=== PATIENT | female | born 1950 | race Caucasian/White ===

== ENCOUNTER 2022-06-22 17:53 | Outpatient (CLI) | payer MEDICARE, BC, SELFPAY | END 2022-06-22 17:54 | disposition home or self-care (01) | LOC: AMB 07-07 16:25 | PROVIDERS: PCP Family Medicine; Visit Provider Emergency Medicine Emergency Medical Services | DX: S81.811A Laceration without foreign body, right lower leg, initial encounter (principal); F10.129 Alcohol abuse with intoxication, unspecified | CPT/HCPCS: A0425; A0427 ==

== ENCOUNTER 2022-06-22 18:31 | Emergency (ER) | payer MEDICARE, BC, SELFPAY ==
[2022-06-22 18:35] VITALS: BP 141/105; PULSE 76; RESP 18; TEMP 36.2; BMI 23.4
--- NOTE | 2022-06-22 19:42 | ED.WOUNDLAC ---
HPI - Wound/Laceration General Chief Complaint: Laceration/Wound Stated Complaint: Fall, Laceration Time Seen by Provider: 06/22/22 18:34 History of Present Illness HPI narrative: This 71-year-old female comes in with a injury to her right lower extremity. She was at home and caught her leg and somehow tripped and sustained a large laceration to the right lower extremity. She did not have any other injury. She did not hit her head or have loss of consciousness. She states that her tetanus status is up-to-date. Related Data Home Medications Medication Instructions Recorded Confirmed No Known Home Medications 06/22/22 06/22/22 Allergies Allergy/AdvReac Type Severity Reaction Status Date / Time No Known Drug Allergies Allergy Verified 06/22/22 18:40 Review of Systems Status of ROS: Reports: 10 or more systems reviewed and unremarkable except as noted in History and below Narrative: Constitutional: No fevers, no weight gain or loss. Eyes: No discharge. No vision changes. HENT: No congestion, no sore throat, no ear pain. Cardiovascular: No chest pain, no palpitations. Respiratory: No shortness of breath, no wheezes, no cough. Gastrointestinal: No abdominal pain, no vomiting, no diarrhea. Genitourinary: No dysuria, no hematuria. Musculoskeletal: Normal range of motion. Skin: No rashes, no pruritis. Large laceration on the right lower extremity. Neurological: No dizziness, weakness, sensory change, speech change. Endo/Heme/Allergies: No bruising or bleeding. No polydipsia. Pysch: no suicidality, no anxiety, no insomnia. All other systems reviewed and are negative. PFSH PFS Social History Smoking Status: Never smoker Second hand tobacco smoke exposure: No How often do you have a drink containing alcohol: never How often do you have six or more drinks on one occasion: Never AUDIT-C Alcohol total score: 0 Non-prescribed substance use: denies use service: No Exam Narrative: Exam Narrative: Constitutional: Well-developed, well-nourished, no acute distress. HEENT: Normocephalic, atraumatic. Neck: Normal range of motion. Nontender. Supple. Heart: Intact distal pulses. Lungs: No chest discomfort. No wheezes, rhonchi, or rales. Abdomen: Nontender. Back: Normal range of motion. Extremities: Normal range of motion. The anterior aspect of the right lower extremity has a laceration that is approximately 18 cm long and gaping open at 3-5 cm with. She has normal range of motion and sensation of her right lower extremity. Skin: Intact. No rash. Warm. No erythema or pallor. Neurologic: No altered sensation. No weakness. Alert and oriented. Psychiatric: No suicidality. No anxiety or depression. No insomnia. Nursing notes and vitals signs are reviewed. Const: Vital Signs, click to edit/add: Vital Signs - 24 hr 06/22/22 18:35 Temperature 97.2 F L Pulse Rate [Right Pulse Oximeter] 76 Respiratory Rate 18 Blood Pressure [Ri ght Upper Arm] 141/105 H Oxygen Delivery Me thod Room Air Course Vital Signs Vital signs: Initial Vital Signs Temperature 97.2 F L 06/22/22 18:35 Temperature Source Temporal Artery Scan 06/22/22 18:35 Pulse Rate 76 06/22/22 18:35 Respiratory Rate 18 06/22/22 18:35 Blood Pressure 141/105 H 06/22/22 18:35 Blood Pressure Mean 117 06/22/22 18:35 Blood Pressure Position Sitting 06/22/22 18:35 Oxygen Delivery Method 06/22/22 18:35 Vital Signs Temperature 97.2 F L 06/22/22 18:35 Pulse Rate 76 06/22/22 18:35 Respiratory Rate 18 06/22/22 18:35 Blood Pressure 141/105 H 06/22/22 18:35 Oxygen Delivery Method 06/22/22 18:35 Temperature 97.2 F L 06/22/22 18:35 Pulse Rate 76 06/22/22 18:35 Respiratory Rate 18 06/22/22 18:35 Blood Pressure 141/105 H 06/22/22 18:35 Oxygen Delivery Method 06/22/22 18:35 MDM - Wound/Laceration MDM Narrative Medical decision making narrative: This patient comes in with a large laceration to the right lower extremity. After anesthesia with 1% lidocaine with epinephrine. The wound was cleansed thoroughly with normal saline. I then approximated the wound partially with subcuticular sutures. Three sutures were placed in interrupted fashion using 4.0 Vicryl suture. Then I used 4.0 Ethilon to approximate the wound edges. Fifteen sutures were placed in interrupted fashion. Instructions were given regarding wound care. Seeing how large this wound is I did decide to prophylactically treat with a few days of Keflex. Discharge Plan Discharge Clinical Impression: Laceration Patient Disposition: Home, Self-Care Condition: Improved Additional Instructions: Keep wound clean and dry. Take medication as prescribed. Follow up with clinic or urgent care in 7-10 days for suture removal. Prescriptions: No Action No Known Home Medications Follow Up/Referrals: Rich Bynum MD [Primary Care Provider] - Stand Alone Forms: [employer] Info Instructions
== END 2022-06-22 20:11 | disposition home or self-care (01) ==
PROVIDERS: Emergency Provider Emergency Medicine Emergency Medical Services; PCP Family Medicine
DX: S81.811A Laceration without foreign body, right lower leg, initial encounter (principal); W01.0XXA Fall on same level from slipping, tripping and stumbling without subsequent striking against object, initial encounter; Y93.9 Activity, unspecified; Y92.9 Unspecified place or not applicable; Y99.9 Unspecified external cause status
CPT/HCPCS: 12035; 99282; 99284

== ENCOUNTER 2022-07-24 02:44 | Emergency (ER) | payer MEDICARE, BC, SELFPAY ==
[2022-07-24 02:56] VITALS: BP 157/87; PULSE 78; RESP 18; TEMP 36.7; O2SAT 99; BMI 23.4
[2022-07-24] MEDS: LIDOCAINE 1 % PF 30 ML INJECTION (03:10)
--- NOTE | 2022-07-24 03:13 | ED.GENADULT ---
HPI - General Adult General Chief complaint: Laceration/Wound Stated complaint: fell down hit a mirror, needs stitches Time Seen by Provider: 07/24/22 02:46 Source: patient Mode of arrival: ambulatory Limitations: no limitations History of Present Illness HPI narrative: 71-year-old female who around 2:00 a.m. in the morning got up to eat some candy, this was approximately 1 hour ago. She took her walker, however she lost her balance and tipped over falling elbow 1st into a mirror that was on the ground. The mirror broke and lacerated her elbow. She denies hitting her head. She denies any other injury. She is not on any blood thinners. Related Data Home Medications Medication Instructions Recorded Confirmed multivitamin 1 tab PO QAM 07/07/22 07/07/22 naproxen sodium 220 mg tablet 440 mg PO DAILY 07/07/22 07/07/22 Previous Rx's Medication Instructions Recorded cephalexin 500 mg capsule 500 mg PO TID 7 days #21 caps 07/24/22 Allergies Allergy/AdvReac Type Severity Reaction Status Date / Time No Known Drug Allergies Allergy Verified 07/24/22 02:58 Review of Systems Status of ROS: Reports: 6 or more systems reviewed and unremarkable except as noted in History and below [facility] Medical History History of fracture of right hip Surgical History History of section (06/05/13) History of colonoscopy Social History Narrative: Alcohol abuse Smoking Status: Current every day smoker Second hand tobacco smoke exposure: No How often do you have a drink containing alcohol: never How often do you have six or more drinks on one occasion: Never AUDIT-C Alcohol total score: 0 Non-prescribed substance use: denies use service: No Exam Narrative: Exam Narrative: Frail, elderly patient in no acute distress. Alert and oriented. Answers questions appropriately. Mood and affect are appropriate. Thoughts are goal oriented and rational. No tangential or magical thinking noted. Patient speaks in full sentences without needing to catch her breath. Speech is not slurred or pressured. HEENT: Normocephalic atraumatic. Pupils are equally round reactive to light. Extraocular muscles are intact. Conjunctivae are moist without any icterus noted. Moist mucous membranes. Neck is soft without any lymphadenopathy or thyromegaly. She has no tenderness to palpation at the cervical spine. She has full range of motion with flexion, extension, side way bending and rotation. Cardiovascular: Heart is regular rate and rhythm. Lungs: Clear to auscultation bilaterally. Patient takes deep breaths without any discomfort. She has no tenderness to palpation of the anterior lateral or posterior chest wall. Abdomen: Soft and nontender nondistended with normal bowel sounds. Extremities: Patient has a large laceration over the lateral elbow on the right side. Laceration is approximately 2 in long. Laceration extends through the dermis which is expectedly thin, and into the subcutaneous tissue which is also thin. There is no visible bone. She has surrounding ecchymosis already forming. Const: Vital Signs, click to edit/add: Vital Signs - 24 hr 07/24/22 02:56 Temperature 98.0 F Pulse Rate [Right Pulse Oximeter] 78 Respiratory Rate 18 Blood Pressure [Le ft Upper Arm] 157/87 H Pulse Oximetry 99 Oxygen Delivery Me thod Room Air Course Course Hospital Course: Wound was anesthetized with lidocaine. Wound was irrigated with saline and wound cleanser and was explored. There are no fragments of glass or mere visible. Again no bones or visible. I did place 1 subcutaneous suture with 4-0 Vicryl. A running suture was placed with 3-0 Ethilon. Vital Signs Vital signs: Initial Vital Signs Temperature 98.0 F 07/24/22 02:56 Temperature Source Temporal Artery Scan 07/24/22 02:56 Pulse Rate 78 07/24/22 02:56 Respiratory Rate 18 07/24/22 02:56 Blood Pressure 157/87 H 07/24/22 02:56 Blood Pressure Mean 110 07/24/22 02:56 Blood Pressure Position Sitting 07/24/22 02:56 Pulse Oximetry 99 07/24/22 02:56 Oxygen Delivery Method 07/24/22 02:56 Vital Signs Temperature 98.0 F 07/24/22 02:56 Pulse Rate 78 07/24/22 02:56 Respiratory Rate 18 07/24/22 02:56 Blood Pressure 157/87 H 07/24/22 02:56 Pulse Oximetry 99 07/24/22 02:56 Oxygen Delivery Method 07/24/22 02:56 Temperature 98.0 F 07/24/22 02:56 Pulse Rate 78 07/24/22 02:56 Respiratory Rate 18 07/24/22 02:56 Blood Pressure 157/87 H 07/24/22 02:56 Pulse Oximetry 99 07/24/22 02:56 Oxygen Delivery Method 07/24/22 02:56 Medical Decision Making MDM Narrative Medical decision making narrative: Laceration. Treated per above. Patient will be placed on Keflex given the length and depth of her laceration. We discussed wound hygiene, signs and symptoms of infection and reasons to return to clinic. I discussed this with both the patient and her . We discussed suture removal in 7-10 days. Discharge Plan Discharge Clinical Impression: Laceration Patient Disposition: Home, Self-Care Condition: Improved Additional Instructions: Keep arm clean and dry. Okay to shower like you normally would. Keep the elbow wrapped-this prevents movement and bending at the elbow, which will help keep your sutures in place. Your sutures should be removed in 7-10 [id number] with your primary care provider to have this done. Okay to ice the elbow today and tomorrow-do not apply ice directly to skin, ice for 20 minutes at a time. operations support representative your medications and start them in the morning. Prescriptions: New cephalexin 500 mg capsule 500 mg PO TID 7 Days Qty: 21 0RF No Action naproxen sodium 220 mg tablet 440 mg PO DAILY multivitamin Tablet 1 tab PO QAM Follow Up/Referrals: Rich Bynum MD [Primary Care Provider] - Stand Alone Forms: [email or web address] Info Instructions
[2022-07-24 03:22] VITALS: BP 145/85; PULSE 78; RESP 18; TEMP 36.7; O2SAT 99
[2022-07-24 03:25] VITALS: BP 145/85; PULSE 78; RESP 18; TEMP 36.7
== END 2022-07-24 03:26 | disposition home or self-care (01) ==
PROVIDERS: Emergency Provider Family Medicine; PCP Family Medicine
DX: S51.011A Laceration without foreign body of right elbow, initial encounter (principal); W01.110A Fall on same level from slipping, tripping and stumbling with subsequent striking against sharp glass, initial encounter
CPT/HCPCS: 12001; 99283; 99284; J2001

== ENCOUNTER 2022-08-03 14:30 | Outpatient (CLI) | payer MEDICARE, BC, SELFPAY ==
[2022-08-03 17:34] LABS: Chloride* 107 mmol/L (96-114); Potassium* 4.2 mmol/L (3.6-5.1); Sodium* 137 mmol/L (135-149)
[2022-08-03 17:36] LABS: Cholesterol* 168 mg/dL (90-199); Estimated Glomerular Filt Rate 59 ml/min
[2022-08-03 17:37] LABS: Blood Urea Nitrogen* 12 mg/dL (7-30); Calcium* 9.4 mg/dL (8.4-10.6); Carbon Dioxide* 22 mmol/L (20-32); Glucose* 98 mg/dL (60-115); HDL Cholesterol* 90 mg/dL (>=50); LDL Cholesterol Calculated 64 mg/dL (<100); Triglycerides* 69 mg/dL (40-149)
[2022-08-03 18:05] LABS: TSH With Reflex to FT4* 0.271 uIU/mL (0.270-4.200)
[2022-08-03 18:24] LABS: Vitamin B12* 797 pg/mL (243-894)
== END 2022-08-03 14:31 | disposition home or self-care (01) ==
PROVIDERS: PCP Family Medicine; Visit Provider Family Medicine
DX: R53.1 Weakness (principal); I10 Essential (primary) hypertension; Z13.29 Encounter for screening for other suspected endocrine disorder; Z13.1 Encounter for screening for diabetes mellitus; Z13.6 Encounter for screening for cardiovascular disorders
CPT/HCPCS: 80048; 80061; 82607; 84443

== ENCOUNTER 2022-10-18 12:28 | Outpatient (CLI) | payer MEDICARE, BC, SELFPAY | END 2022-10-18 12:29 | disposition home or self-care (01) | LOC: WOUND 12:28 | PROVIDERS: PCP Family Medicine; Visit Provider Nurse Practitioner Family | DX: I87.311 Chronic venous hypertension (idiopathic) with ulcer of right lower extremity (principal); L97.812 Non-pressure chronic ulcer of other part of right lower leg with fat layer exposed; I89.0 Lymphedema, not elsewhere classified; Z72.0 Tobacco use | CPT/HCPCS: 11042; 11045; 87070; 99213 ==

== ENCOUNTER 2022-10-25 14:48 | Outpatient (CLI) | payer MEDICARE, BC, SELFPAY | END 2022-10-25 14:49 | disposition home or self-care (01) | LOC: WOUND 14:48 | PROVIDERS: PCP Family Medicine; Visit Provider Nurse Practitioner Family | DX: I87.311 Chronic venous hypertension (idiopathic) with ulcer of right lower extremity (principal); L97.812 Non-pressure chronic ulcer of other part of right lower leg with fat layer exposed; I89.0 Lymphedema, not elsewhere classified; Z72.0 Tobacco use | CPT/HCPCS: 11042; 11045 ==

== ENCOUNTER 2022-11-01 11:19 | Outpatient (CLI) | payer MEDICARE, BC, SELFPAY | END 2022-11-01 11:20 | disposition home or self-care (01) | LOC: WOUND 11:19 | PROVIDERS: PCP Family Medicine; Visit Provider Nurse Practitioner Family | DX: I87.311 Chronic venous hypertension (idiopathic) with ulcer of right lower extremity (principal); L97.812 Non-pressure chronic ulcer of other part of right lower leg with fat layer exposed; I89.0 Lymphedema, not elsewhere classified; Z72.0 Tobacco use | CPT/HCPCS: 11042 ==

== ENCOUNTER 2022-11-08 13:20 | Outpatient (CLI) | payer MEDICARE, BC, SELFPAY | END 2022-11-08 13:21 | disposition home or self-care (01) | LOC: WOUND 13:20 | PROVIDERS: PCP Family Medicine; Visit Provider Nurse Practitioner Family | DX: I87.311 Chronic venous hypertension (idiopathic) with ulcer of right lower extremity (principal); L97.812 Non-pressure chronic ulcer of other part of right lower leg with fat layer exposed | CPT/HCPCS: 11042; 11045 ==

== ENCOUNTER 2022-11-15 10:53 | Outpatient (CLI) | payer MEDICARE, BC, SELFPAY | END 2022-11-15 10:54 | disposition home or self-care (01) | LOC: WOUND 10:54 | PROVIDERS: PCP Family Medicine; Visit Provider Nurse Practitioner Family | DX: I87.311 Chronic venous hypertension (idiopathic) with ulcer of right lower extremity (principal); L97.812 Non-pressure chronic ulcer of other part of right lower leg with fat layer exposed; I89.0 Lymphedema, not elsewhere classified; Z72.0 Tobacco use | CPT/HCPCS: 11042; 11045 ==

== ENCOUNTER 2022-11-22 10:41 | Outpatient (CLI) | payer MEDICARE, BC, SELFPAY | END 2022-11-22 10:42 | disposition home or self-care (01) | LOC: WOUND 10:41 | PROVIDERS: PCP Family Medicine; Visit Provider Nurse Practitioner Family | DX: I87.311 Chronic venous hypertension (idiopathic) with ulcer of right lower extremity (principal); L97.812 Non-pressure chronic ulcer of other part of right lower leg with fat layer exposed; I89.0 Lymphedema, not elsewhere classified; Z72.0 Tobacco use | CPT/HCPCS: 11043; 11046 ==

== ENCOUNTER 2022-11-29 10:44 | Outpatient (CLI) | payer MEDICARE, BC, SELFPAY | END 2022-11-29 10:45 | disposition home or self-care (01) | LOC: WOUND 10:44 | PROVIDERS: PCP Family Medicine; Visit Provider Nurse Practitioner Family | DX: I87.311 Chronic venous hypertension (idiopathic) with ulcer of right lower extremity (principal); L97.812 Non-pressure chronic ulcer of other part of right lower leg with fat layer exposed; I89.0 Lymphedema, not elsewhere classified; Z72.0 Tobacco use | CPT/HCPCS: 11042 ==

== ENCOUNTER 2022-12-01 12:49 | Outpatient (CLI) | payer MEDICARE, BC, SELFPAY ==
--- NOTE | 2022-12-01 13:00 | CRLHL7_ITS ---
For Patients: As a result of the Century Cures Act, medical imaging exams and procedure reports are released immediately into your electronic medical record. You may view this report before your referring provider. If you have questions, please contact your health care provider. Indication: NON-HEALING LE WOUND, Comparison: None Technique: Routine duplex arterial examination of bilateral lower extremities including 2D and spectral analysis, and color Doppler imaging was performed. Findings: In the right lower extremity there are multiphasic waveforms in the common femoral artery, profunda femoral artery, superficial femoral artery, and popliteal artery. Similarly, at the ankle, there are multiphasic waveforms in the posterior tibial artery, and dorsalis pedis arteries. In the left lower extremity there are multiphasic waveforms within the common femoral artery, profunda femoral artery, superficial femoral artery, and popliteal artery. Similarly, at the ankle, there are multiphasic waveforms in the posterior tibial artery, and dorsalis pedis arteries. Impression: Multiphasic waveforms of bilateral lower extremities. No elevated velocities to suggest focal stenosis. Dictated by Kevin Osborn MD @ 12/02/2022 10:51:04 AM (Electronically Signed)
== END 2022-12-01 12:50 | disposition home or self-care (01) ==
LOC: US 12:50
PROVIDERS: PCP Family Medicine; Visit Provider Nurse Practitioner Family
DX: L97.212 Non-pressure chronic ulcer of right calf with fat layer exposed (principal)
CPT/HCPCS: 93926

== ENCOUNTER 2023-01-03 10:49 | Outpatient (CLI) | payer MEDICARE, BC, SELFPAY | END 2023-01-03 10:50 | disposition home or self-care (01) | LOC: WOUND 10:49 | PROVIDERS: PCP Family Medicine; Visit Provider Nurse Practitioner Family | DX: I87.311 Chronic venous hypertension (idiopathic) with ulcer of right lower extremity (principal); L97.812 Non-pressure chronic ulcer of other part of right lower leg with fat layer exposed; I89.0 Lymphedema, not elsewhere classified; Z72.0 Tobacco use | CPT/HCPCS: 11042 ==

== ENCOUNTER 2023-01-10 11:18 | Outpatient (CLI) | payer MEDICARE, BC, SELFPAY | END 2023-01-10 11:19 | disposition home or self-care (01) | LOC: WOUND 11:19 | PROVIDERS: PCP Family Medicine; Visit Provider Nurse Practitioner Family | DX: I87.311 Chronic venous hypertension (idiopathic) with ulcer of right lower extremity (principal); L97.812 Non-pressure chronic ulcer of other part of right lower leg with fat layer exposed; I89.0 Lymphedema, not elsewhere classified | CPT/HCPCS: 11042 ==

== ENCOUNTER 2023-01-24 11:19 | Outpatient (CLI) | payer MEDICARE, BC, SELFPAY | END 2023-01-24 11:20 | disposition home or self-care (01) | LOC: WOUND 11:20 | PROVIDERS: PCP Family Medicine; Visit Provider Family Medicine | DX: I87.311 Chronic venous hypertension (idiopathic) with ulcer of right lower extremity (principal); I89.0 Lymphedema, not elsewhere classified; L97.812 Non-pressure chronic ulcer of other part of right lower leg with fat layer exposed | CPT/HCPCS: 11042 ==

== ENCOUNTER 2023-02-07 09:29 | Outpatient (CLI) | payer MEDICARE, BC, SELFPAY | END 2023-02-07 09:30 | disposition home or self-care (01) | LOC: WOUND 09:29 | PROVIDERS: PCP Family Medicine; Visit Provider Nurse Practitioner Family | DX: I87.311 Chronic venous hypertension (idiopathic) with ulcer of right lower extremity (principal); L97.812 Non-pressure chronic ulcer of other part of right lower leg with fat layer exposed; Z72.0 Tobacco use | CPT/HCPCS: 11042 ==

== ENCOUNTER 2023-02-21 10:24 | Outpatient (CLI) | payer MEDICARE, BC, SELFPAY | END 2023-02-21 10:25 | disposition home or self-care (01) | LOC: WOUND 10:24 | PROVIDERS: PCP Family Medicine; Visit Provider Nurse Practitioner Family | DX: I87.311 Chronic venous hypertension (idiopathic) with ulcer of right lower extremity (principal); L97.812 Non-pressure chronic ulcer of other part of right lower leg with fat layer exposed | CPT/HCPCS: 97597 ==

== ENCOUNTER 2023-03-07 09:21 | Outpatient (CLI) | payer MEDICARE, BC, SELFPAY | END 2023-03-07 09:22 | disposition home or self-care (01) | LOC: WOUND 09:21 | PROVIDERS: PCP Family Medicine; Visit Provider Nurse Practitioner Family | DX: I87.311 Chronic venous hypertension (idiopathic) with ulcer of right lower extremity (principal); L97.812 Non-pressure chronic ulcer of other part of right lower leg with fat layer exposed; I89.0 Lymphedema, not elsewhere classified | CPT/HCPCS: 97597 ==

== ENCOUNTER 2023-03-21 09:51 | Outpatient (CLI) | payer MEDICARE, BC, SELFPAY | END 2023-03-21 09:52 | disposition home or self-care (01) | LOC: WOUND 09:51 | PROVIDERS: PCP Family Medicine; Visit Provider Nurse Practitioner Family | DX: I87.311 Chronic venous hypertension (idiopathic) with ulcer of right lower extremity (principal); L97.812 Non-pressure chronic ulcer of other part of right lower leg with fat layer exposed; I89.0 Lymphedema, not elsewhere classified; Z72.0 Tobacco use | CPT/HCPCS: 99212 ==

== ENCOUNTER 2023-06-15 13:20 | Outpatient (CLI) | payer MEDICARE, BC, SELFPAY | END 2023-06-15 13:21 | disposition home or self-care (01) | PROVIDERS: PCP Family Medicine; Visit Provider Family Medicine | DX: R10.13 Epigastric pain (principal); R63.4 Abnormal weight loss; M54.9 Dorsalgia, unspecified | CPT/HCPCS: 80053; 84443 ==

== ENCOUNTER 2023-06-16 13:26 | Emergency (ER) | payer MEDICARE, BC, SELFPAY ==
[2023-06-16] VITALS (10 sets, daily range): BP systolic 121–146; BP diastolic 74–85; PULSE 82–101; RESP 12–14; TEMP 36.3; O2SAT 97–99; BMI 21.6
--- NOTE | 2023-06-16 13:39 | ED_ITS ---
HPI - General Adult General Time Seen by Provider: 13:39 Date Seen: 06/16/23 Chief complaint: Weakness Stated complaint: Nausea, weakness Time Seen by Provider: 06/16/23 13:38 Source: patient and RN notes reviewed Mode of arrival: wheelchair Limitations: no limitations History of Present Illness HPI narrative: This patient is a 72yo female advised to come to the ED for further evaluation of abnormal labs done in clinic yesterday. She has had 23lb weight loss over the last couple of months, some intermittent abdominal discomfort, intermittent chest pain. Denies diarrhea. Has had diminished appetite and nausea, some daily vomiting of clearish color. She has felt weak over the last couple of months. No fever. No prior history of abdominal surgeries, no family history of known cancer. Is smoking cigarettes daily. Male sales mgr with her did let interviewer know that she drinks alcohol a lot, a whole box of wine at a time??? He states that she doesn't admit to this, told us when she was at [place]. She had denied alcohol use during interview. Labs from [place] [address], absolute neutrophil count 13,400, platelet count [id number]. Her sodium was 127, potassium 5.2, bilirubin 5.1, AST 364, ALT 141 and alkaline phosphatase 860. Related Data Home Medications Medication Instructions Recorded Confirmed aspirin 81 mg tablet,delayed 81 mg PO QDAY 10/11/22 06/16/23 release (Adult Aspirin Regimen) biotin 1 mg tablet 2,500 mcg PO QDAY PRN 06/15/23 06/16/23 Allergies Allergy/AdvReac Type Severity Reaction Status Date / Time No Known Drug Allergies Allergy Verified 06/15/23 12:51 Review of Systems Status of ROS: Reports: 6 or more systems reviewed and unremarkable except as noted in History and below [facility] Medical History Laceration Surgical History Status post open reduction and internal fixation (ORIF) of fracture ?Z98.890 - Other specified postprocedural states (ICD-10) ?Z87.81 - Personal history of (healed) traumatic fracture (ICD-10) Status post surgical removal of ganglion cyst ?Z98.890 - Other specified postprocedural states (ICD-10) History of colonoscopy ?Z98.890 - Other specified postprocedural states (ICD-10) History of section (06/05/13) ?Z98.891 - History of uterine scar from previous surgery (ICD-10) Social History Narrative: Alcohol abuse Smoking Status: Current every day smoker Second hand tobacco smoke exposure: No How often do you have a drink containing alcohol: never How often do you have six or more drinks on one occasion: Never AUDIT-C Alcohol total score: 0 Non-prescribed substance use: denies use Little interest or pleasure in doing things: nearly every day Feeling down, depressed, or hopeless: not at all service: No Exam Const: Vital Signs, click to edit/add: Vital Signs - 24 hr 06/16/23 13:32 06/16/23 14:00 06/16/23 14:15 Temperature 97.3 F L Pulse Rate 92 Pulse Rate [Pulse Oximeter] 101 H Respiratory Rate 14 Blood Pressure Blood Pressure [Ri ght Upper Arm] 127/85 Pulse Oximetry 99 99 98 Oxygen Delivery Me thod Room Air 06/16/23 15:11 06/16/23 16:02 06/16/23 16:32 Temperature Pulse Rate 88 83 85 Pulse Rate [Pulse Oximeter] Respiratory Rate 14 14 14 Blood Pressure 121/74 137/78 142/83 H Blood Pressure [Ri ght Upper Arm] Pulse Oximetry 97 97 98 Oxygen Delivery Me thod 06/16/23 17:02 06/16/23 17:32 06/16/23 19:02 Temperature Pulse Rate 85 96 91 Pulse Rate [Pulse Oximeter] Respiratory Rate 14 14 12 Blood Pressure 146/78 H 124/75 141/77 H Blood Pressure [Ri ght Upper Arm] Pulse Oximetry 98 97 98 Oxygen Delivery Me thod 06/16/23 20:15 Temperature 97.3 F L Pulse Rate Pulse Rate [Pulse Oximeter] 82 Respiratory Rate 12 Blood Pressure Blood Pressure [Ri ght Upper Arm] 127/85 Pulse Oximetry Oxygen Delivery Me thod Frail but alert interactive 72-year-old female seen in exam room some in. Question jaundice and scleral icterus, conjugate gaze. Able speak in complete sentences. Lungs are clear, good air entry, no wheezing or crackles. CV regular rate and rhythm, no murmur, normal S1-S2, no S3-S4. Abdomen is soft, do not feel any significant distension, do not feel any masses, she does seem to have right upper quadrant tenderness. No lower extremity edema, patient was ambulatory into the ED of her own accord. Note no rash. Documenting provider has reviewed patient's vital signs: yes Course Course ED Course: Patient had elevated white blood count elevated LFTs yesterday including bilirubin and alkaline phosphatase. I would not say she has painless jaundice as she definitely is tender on examination. There could be alcohol complicating this, consideration for cirrhosis. She still has her gallbladder. She is not febrile and is hemodynamically stable but with elevated white count infectious etiologies need to be considered. Will get a full complement of labs and repeat which she had done yesterday. She will be getting imaging. Have made the decision to do chest CT PE protocol. Given her current clinical picture, malignancy has to be a consideration. With chest discomfort, I do think that there is a chance for pulmonary embolus or thromboembolic disease complicating what ever her illnesses. Will also proceed with CT imaging of her abdomen pelvis with IV contrast. Reevaluation(s) Time of Reevaluation #1: 15:39 Reevaluation #1: Have reviewed the CT findings with the patient. This is her that is with her. We discussed to the limitations of bed availability at places. Did review with them that this is not something that we can manage here and unfortunately we do not have any beds anyway. She really is going to need to see interventional Radiology as well as GI, this is not certainly anything we can manage here. Will be initiating antibiotics with Zosyn given she has no allergies. Time of Reevaluation #2: 15:51 Reevaluation #2: Have reviewed the case with Dr. Bruno from [facility], unfortunately [facility] does not have any beds; staff was under the assumption that [facility] had a bed but this is not the case. Patient is 2. On the wait list for [place] [facility] [place]. We will continue to try other facilities leave her on the wait list at this time. She is certainly hemodynamically stable and not septic at this time. I have reviewed this with the patient. Will also continue to look at other systems to see if there may be capacity elsewhere. Time of Reevaluation #3: 17:18 Reevaluation #3: Have received it call back from [facility], have talked to the hospitalist Dr. Bartlett. He is aware that I have spoken with GI, would like me to talk to their surgeon Dr. Blanco as well. I am currently awaiting his call back. If the surgeon is in agreement with the transfer, we will be proceeding as planned. 5:41 p.m.: Have spoke with the surgeon, he agrees with the plan. There is probably a 4 hour delay for transfer to [facility] right now. They will contact us when they have a bed ready. Additional Reevaluation(s): 8:29 p.m.: Patient is requesting something more for back pain actually prior to transfer. EMS is here to take her to [facility]. Will give her 25 mcg IV fentanyl and 4 mg IV Zofran prior to transfer. She will continue on monitoring. She had asked for water, have requested she be NPO until she is evaluated at [facility]. Vital Signs Vital signs: Initial Vital Signs Temperature 97.3 F L 06/16/23 13:32 Temperature Source Temporal Artery Scan 06/16/23 13:32 Pulse Rate 101 H 06/16/23 13:32 Pulse Rhythm Regular 06/16/23 13:32 Respiratory Rate 14 06/16/23 13:32 Blood Pressure 127/85 06/16/23 13:32 Blood Pressure Mean 99 06/16/23 13:32 Blood Pressure Position Sitting 06/16/23 13:32 Pulse Oximetry 99 06/16/23 13:32 Oxygen Delivery Method Room Air 06/16/23 13:32 Vital Signs Temperature 97.3 F L 06/16/23 13:32 Pulse Rate 101 H 06/16/23 13:32 Respiratory Rate 14 06/16/23 13:32 Blood Pressure 127/85 06/16/23 13:32 Pulse Oximetry 99 06/16/23 13:32 Oxygen Delivery Method Room Air 06/16/23 13:32 Temperature 97.3 F L 06/16/23 20:15 Pulse Rate 82 06/16/23 20:15 Respiratory Rate 12 06/16/23 20:15 Blood Pressure 127/85 06/16/23 20:15 Pulse Oximetry 98 06/16/23 19:02 Oxygen Delivery Method Room Air 06/16/23 13:32 Medications Administered Medications: Generic Name Dose Route Start Last Admin Trade Name Freq PRN Reason Stop Dose Admin Potassium Chloride/Sodium Chloride 1,000 mls @ 100 mls/hr 06/16/23 15:46 06/16/23 16:28 0.9 % Sodium Ch + Kcl 20 Meq/L IV 100 mls/hr .Q10H CARY Administration Discontinued Medications Generic Name Dose Route Start Last Admin Trade Name Freq PRN Reason Stop Dose Admin Piperacillin Sod/Tazobactam 100 mls @ 200 mls/hr 06/16/23 15:36 06/16/23 16:28 Sod 3.375 gm/ Sodium Chloride IVPB 06/16/23 15:37 Infused ONCE ONE Infusion Medical Decision Making Lab Data Lab results reviewed: Yes I reviewed the patient's lab results Labs: Lab Results 06/16/23 06/16/23 06/16/23 Range/Units 14:00 14:05 14:32 WBC 15.42 H (4.50-11.00) K/uL RBC 3.56 L (4.00-5.20) m/uL Hgb 12.3 (12.0-16.0) gm/dL Hct 35.8 (33.0-51.0) % MCV 101 H (80-100) fL MCH 35 H (26-34) pg MCHC 34 (32-36) gm/dL RDW Coeff of Wendy 13.9 (11.5-15.5) % Plt Count 545 H (140-440) K/uL Neut % (Auto) 84.1 H (42.0-72.0) % Lymph % (Auto) 11.5 L (20-44) % Parmer % (Auto) 3.6 (0.0-11.0) % Eos % (Auto) 0.4 (0.0-7.0) % Baso % (Auto) 0.1 (0.0-3.0) % Neut # (Auto) 13.00 H (1.7-7.0) K/uL Lymph # (Auto) 1.80 (0.90-2.90) K/uL Parmer # (Auto) 0.60 (0.00-0.90) K/UL Eos # (Auto) 0.10 (0.00-0.50) K/uL Baso # (Auto) 0.00 (0.00-0.30) K/uL Abs Immat Gran (auto) 0.00 (0.00-0.30) K/uL Imm/Tot Granulo (auto) 0.3 % INR 0.94 (0.91-1.10) APTT 33 (23-33) Seconds D-Dimer Quant (PE/DVT) 1.18 H (0.00-0.50) ug/ml Sodium 132 L (135-149) mmol/L Potassium 3.4 L (3.6-5.1) mmol/L Chloride 100 (96-114) mmol/L Carbon Dioxide 19 L (20-32) mmol/L Anion Gap 13 (7-15) mEq/L BUN 13 (7-30) mg/dL Creatinine 0.6 (0.5-1.5) mg/dL Estimated Creat Clear 37.82 Estimated GFR 94 ml/min Glucose 93 (60-115) mg/dL Lactate 1.5 (0.5-1.9) mmol/L Calcium 8.7 (8.4-10.6) mg/dL Total Bilirubin 2.8 H (0.1-1.5) mg/dL Direct Bilirubin 1.7 H (0.0-0.5) mg/dL AST 258 H (12-35) U/L ALT 128 H (4-35) U/L Alkaline Phosphatase 1052 H (40-150) U/L Ammonia 60.0 H (13.1-30.0) umol/L Troponin I < 0.01 L (0.01-0.04) ng/mL C-Reactive Protein 8.5 H (0.5-1.0) mg/dL NT-Pro-B Natriuret Pep 1130 pg/mL Total Protein 7.6 (6.0-8.3) g/dL Albumin 3.4 (3.3-5.0) g/dL Lipase 123 (23-300) U/L Ethyl Alcohol < 0.01 L (0.01-0.03) % SARS-CoV-2 (PCR) Negative SARS-CoV-2 (Negative) Influenza Type A (PCR) Negative PCR FLU A (Negative) Influenza Type B (PCR) Negative PCR FLU B (Negative) RSV (PCR) Negative PCR RSV (Negative) Lab Acknowledgement Test Added Test Added Imaging Data CT scan - abdomen: Attestation: I have reviewed the pertinent imaging results. Radiologist's impression: Patient: LATHA CALABRESE Facility:?[facility] Patient ID:?[id number] Site Patient ID:?[id number]. Site :?[id number] Study:?CT Abdomen/Pelvis w/iv only-06/16/2023 2:41:51 PM Ordering Physician:Dorian Mcdaniel Final Report: INDICATION: Nausea, weight loss, abnormal LFTs COMPARISON: Same-day pulmonary embolism protocol chest CT, prior CT abdomen pelvis 01/18/2017 TECHNIQUE: CT of the abdomen and pelvis after the administration of intravenous contrast. Multiplanar axial, coronal, and sagittal reformats were reconstructed. Contrast: 67 mL Isovue 370 intravenously. Oral contrast was not administered. FINDINGS: Lung bases: Bibasilar atelectasis. Liver: Normal. No masses. Normal vasculature. Gallbladder and biliary tree: There is a 0.6 cm calculus at the ampulla. There is significant upstream biliary ductal dilatation including dilatation of the extrahepatic bile duct up to 1.6 cm. There is a moderate amount of intrahepatic biliary ductal dilatation. The gallbladder is decompressed but thick-walled and hyper enhancing. There is an adjacent thick-walled abscess in the abdominal wall which measures 5.5 x 2.0 x 3.7 cm. Findings are consistent with perforated brie cystitis in secondary abscess formation. Pancreas: Normal pancreas. No pancreatic duct dilatation. No pancreatic inflammation. No discrete pancreatic mass.. Spleen: Normal. Normal size. Adrenal glands: Normal. No nodules. Kidneys and bladder: Normal size and position. Tiny left renal simple cyst. No calculi. No urinary tract dilation. The urinary bladder is normal. GI: Normal. No dilated segments. No abnormal bowel wall thickening or hyperenhancement. Small stool burden. The appendix is normal. Vessels: Aorta and major branches, including the mesenteric vessels: Patent. Normal caliber. Few atherosclerotic plaques. IVC and tributaries: Normal. Mesenteric and portal veins: Normal. Peritoneum: No free fluid. Lymph nodes: No adenopathy. Pelvis: Physiologic appearance of the reproductive organs. Bones: Osteopenia. Right hip fracture fixation. Heterotopic ossification adjacent to the right hip joint. T11, T12, and L1 compression fractures. The L1 fracture is severe with almost 90 percent loss of height anteriorly. Multilevel disc and facet degeneration. Abdominal wall: Well-healed abdominal scars. Diastasis. Small back containing upper abdominal hernia. Generally very low muscle bulk. IMPRESSION: Choledocholithiasis with significant intra and extrahepatic biliary ductal dilatation. Chronic perforated cholecystitis with a chest wall abscess. Discussed with Dr. Major at 2:54 pm [employer] HELPER on 06/16/2023. CT scan - chest: Attestation: I have reviewed the pertinent imaging results. Radiologist's impression: Patient: LATHA CALABRESE Facility:?[facility] Patient ID:?[id number] Site Patient ID:?[id number] Site :?[id number] Study:?CT Chest Angio PE PROTOCOL-06/16/2023 2:42:38 PM Ordering Physician:Dorian Mcdaniel Final Report: INDICATION: Nausea, weight loss, abnormal LFTs COMPARISON: Same day abdomen CT. TECHNIQUE: CT angiogram chest with contrast, pulmonary embolism protocol. Multiplanar axial, coronal, and sagittal reformats are included. MIP images to improve detection of pulmonary emboli are included. Intravenous contrast: 69 mL Isovue 370 FINDINGS: PE: Well-timed contrast bolus. No pulmonary emboli. Normal caliber main pulmonary artery. Normal sized right heart chambers. No reflux of contrast below the diaphragm. Heart and great vessels: No pericardial effusion. Normal cardiac chamber size. Few atherosclerotic plaques. No aortic aneurysm. Lungs: Inspiratory phase imaging. No nodules or masses. Bibasilar atelectasis. Normal appearance of the pulmonary interstitium. Pleura: No pleural effusion. No pneumothorax. Airway: Normal tracheobronchial tree. Lymph nodes: No thoracic adenopathy. Mediastinum: No pneumomediastinum. Bones: Osteopenia. Multilevel compression fractures at the thoracolumbar junction.. No focal bone lesions. Chest wall: Lung muscle pull. No masses. Upper abdomen: Intrahepatic biliary ductal dilatation. Please see same day abdomen pelvis CT. IMPRESSION: Normal exam. No pulmonary embolus. Please note that all CT scans at this facility use dose modulation, iterative reconstruction, and/or weight-based dosing when appropriate to reduce radiation dose to as low as reasonably achievable. Dictated by Klaudia Carvajal MD @ 06/16/2023 3:00:49 PM (Electronic Signature) ECG Data Attestation: I personally reviewed and interpreted this ECG as follows: (Normal sinus rhythm, 88 beats per minute. Low-voltage QRS. Q-waves inferiorly in lead 3 and AVF but normal Na V2. No acute ST segment changes. QT corrected 469 milliseconds.) Prior ECG tracings: not available for review Critical Care Time Critical Care Time Critical Care Time: No Discharge Plan Discharge Clinical Impression: Perforation of gallbladder due to chronic cholecystitis with calculus, Abdominal wall abscess Patient Disposition: [facility] Discharge Location: [facility] Condition: Stable
--- NOTE | 2023-06-16 14:05 | CRLHL7_ITS ---
For Patients: As a result of the Century Cures Act, medical imaging exams and procedure reports are released immediately into your electronic medical record. You may view this report before your referring provider. If you have questions, please contact your health care provider. INDICATION: Nausea, weight loss, abnormal LFTs COMPARISON: Same day abdomen CT. TECHNIQUE: CT angiogram chest with contrast, pulmonary embolism protocol. Multiplanar axial, coronal, and sagittal reformats are included. MIP images to improve detection of pulmonary emboli are included. Intravenous contrast: 69 mL Isovue 370 FINDINGS: PE: Well-timed contrast bolus. No pulmonary emboli. Normal caliber main pulmonary artery. Normal sized right heart chambers. No reflux of contrast below the diaphragm. Heart and great vessels: No pericardial effusion. Normal cardiac chamber size. Few atherosclerotic plaques. No aortic aneurysm. Lungs: Inspiratory phase imaging. No nodules or masses. Bibasilar atelectasis. Normal appearance of the pulmonary interstitium. Pleura: No pleural effusion. No pneumothorax. Airway: Normal tracheobronchial tree. Lymph nodes: No thoracic adenopathy. Mediastinum: No pneumomediastinum. Bones: Osteopenia. Multilevel compression fractures at the thoracolumbar junction.. No focal bone lesions. Chest wall: Lung muscle pull. No masses. Upper abdomen: Intrahepatic biliary ductal dilatation. Please see same day abdomen pelvis CT. IMPRESSION: Normal exam. No pulmonary embolus. Please note that all CT scans at this facility use dose modulation, iterative reconstruction, and/or weight-based dosing when appropriate to reduce radiation dose to as low as reasonably achievable. Dictated by Klaudia Carvajal MD @ 06/16/2023 3:00:49 PM (Electronically Signed)
[2023-06-16 14:09] LABS: Lactate* 1.5 mmol/L (0.5-1.9)
[2023-06-16 14:13] LABS: Basophils Percent Auto 0.1 % (0.0-3.0); Eosinophils Percent Auto 0.4 % (0.0-7.0); Hematocrit 35.8 % (33.0-51.0); Hemoglobin* 12.3 gm/dL (12.0-16.0); Immature Granulocytes Pct Auto 0.3 %; Lymphocytes Percent Auto 11.5 % (20-44); Mean Corpuscular HGB Conc 34 gm/dL (32-36); Mean Corpuscular Hemoglobin 35 pg (26-34); Mean Corpuscular Volume 101 fL (80-100); Monocytes Percent Auto 3.6 % (0.0-11.0); Neutrophils Percent Auto 84.1 % (42.0-72.0); Platelet Count* 545 K/uL (140-440); RDW Coefficient of Variation % 13.9 % (11.5-15.5); Red Blood Count 3.56 m/uL (4.00-5.20); White Blood Count* 15.42 K/uL (4.50-11.00)
[2023-06-16 14:15] LABS: Potassium* 3.4 mmol/L (3.6-5.1); Sodium* 132 mmol/L (135-149)
[2023-06-16 14:27] LABS: Albumin* 3.4 g/dL (3.3-5.0); Chloride* 100 mmol/L (96-114)
[2023-06-16 14:30] LABS: Creatinine* 0.6 mg/dL (0.5-1.5); Est. Creatinine Clearance* 37.82; Estimated Glomerular Filt Rate 94 ml/min
[2023-06-16 14:31] LABS: Alanine Aminotransferase* 128 U/L (4-35); Alkaline Phosphatase* 1052 U/L (40-150); Anion Gap 13 mEq/L (7-15); Aspartate Amino Transferase* 258 U/L (12-35); Bilirubin Direct* 1.7 mg/dL (0.0-0.5); Bilirubin Total* 2.8 mg/dL (0.1-1.5); Blood Urea Nitrogen* 13 mg/dL (7-30); Calcium* 8.7 mg/dL (8.4-10.6); Carbon Dioxide* 19 mmol/L (20-32); Glucose* 93 mg/dL (60-115); Lipase* 123 U/L (23-300); Total Protein* 7.6 g/dL (6.0-8.3)
[2023-06-16 14:33] LABS: C Reactive Protein* 8.5 mg/dL (0.5-1.0); INR 0.94 (0.91-1.10); Prothrombin Time 13.1 Seconds
[2023-06-16 14:34] LABS: Partial Thromboplastin Time* 33 Seconds (23-33)
[2023-06-16 14:35] LABS: D Dimer Quantitative* 1.18 ug/ml (0.00-0.50)
[2023-06-16 14:43] LABS: NT Pro B Type NatriureticPept* 1130 pg/mL; Troponin I* < 0.01 ng/mL (0.01-0.04)
[2023-06-16 14:45] LABS: Slide Review Reflex No
[2023-06-16 14:55] LABS: PCR FLU A Negative PCR FLU A (Negative); PCR FLU B Negative PCR FLU B (Negative); PCR RSV Negative PCR RSV (Negative)
[2023-06-16 15:01] LABS: SARS PCR* Negative SARS-CoV-2 (Negative)
[2023-06-16 15:03] LABS: Ethanol* < 0.01 % (0.01-0.03)
[2023-06-16] MEDS: PIPERACILLIN/TAZOBACTAM 3.375 GM in 0.9 % SODIUM CHLORIDE Mini-bag 100 ML IVPB (15:51)
[2023-06-16] MEDS: 0.9 % SODIUM CH + KCL 20 mEq/L 1,000 ML 100 ML IV (16:28)
--- NOTE | 2023-06-16 17:57 | ED.NURSE ---
Pt tolerating Normal Saline/K infusion. Pt repositioned. Lights dimmed for comfort, call light within reach.
--- NOTE | 2023-06-16 20:03 | ED.NURSE ---
Per Charge Nurse at [facility] [address], [facility] to arrange transport. Dispatch notified and updated [facility] with EMS ETA.
--- NOTE | 2023-06-16 20:14 | ED.NURSE ---
updated on Dispo and pending tx.
--- NOTE | 2023-06-16 20:26 | ED.NURSE ---
Report given to Lucinda Charge Nurse at [facility]. Report given to EMS. Pt to leave ED via EMS.
[2023-06-16] MEDS: fentaNYL 100 MCG/2 ML inj 25 MCG IVP (20:41)
[2023-06-16] MEDS: ONDANSETRON 2 MG/ML inj 4 MG IVP (20:41)
== END 2023-06-16 20:41 | disposition short-term general hospital (02) ==
PROVIDERS: Emergency Provider Family Medicine; PCP Family Medicine
DX: K82.A2 Perforation of gallbladder in cholecystitis (principal)
CPT/HCPCS: 36415; 71275; 74177; 80053; 82077; 82140; 82248; 83605; 83690; 83880; 84484; 85025; 85379; 85610; 85730; 86140; 87040; 87631; 93005; 94761; 96365; 96366; 96375; 99285; J2405; J2543; J3010; Q9967

== ENCOUNTER 2023-06-16 20:20 | Outpatient (CLI) | payer MEDICARE, BC, SELFPAY | END 2023-06-16 20:21 | disposition home or self-care (01) | LOC: AMB 06-19 13:21 | PROVIDERS: PCP Family Medicine; Visit Provider Internal Medicine | DX: L02.211 Cutaneous abscess of abdominal wall (principal); K80.10 Calculus of gallbladder with chronic cholecystitis without obstruction | CPT/HCPCS: A0425; A0434 ==

== ENCOUNTER 2023-06-26 14:19 | Outpatient (CLI) | payer MEDICARE, BC, SELFPAY | END 2023-06-26 14:20 | disposition home or self-care (01) | PROVIDERS: PCP Family Medicine; Visit Provider Family Medicine | DX: I10 Essential (primary) hypertension (principal); K80.10 Calculus of gallbladder with chronic cholecystitis without obstruction; L02.211 Cutaneous abscess of abdominal wall; K82.A2 Perforation of gallbladder in cholecystitis | CPT/HCPCS: 80053 ==

== ENCOUNTER 2023-10-05 09:57 | Outpatient (CLI) | payer MEDICARE, BC, SELFPAY ==
--- NOTE | 2023-10-05 10:15 | MR_ITS ---
Patient: LATHA CALABRESE Facility:?[facility] Patient ID:?[id number] Site Patient ID:?[id number]. Site :?[id number] Study:?MRI-Spine Lumbar w/o-10/05/2023 10:36:45 AM Ordering Physician:Kwasi James Final Report: Indication: Compression fracture, low back pain. Technique: Multisequence MRI of the lumbar spine without the use of intravenous contrast. Comparison: Correlated with lumbar spine radiographs dated 10/02/2023. Findings: Prominent thoracolumbar kyphosis. Multilevel compression fracture deformities, with burst fracture of L1, superior endplate depression at T12, L2, and L4, and inferior endplate depression at L5. Focal edema associated with the superior L1 endplate may reflect acute on chronic fracture. No T1 hypointense infiltrative lesion. The conus medullaris terminates at the L1-L2 level. T12-L1: No significant spinal canal or neural foraminal stenosis. L1-L2: Symmetric disc bulge and endplate osteophytic ridging. No significant spinal canal or neural foraminal stenosis. L2-L3: Symmetric disc bulge. Mild facet joint hypertrophy. No significant spinal canal or neural foraminal stenosis. L3-L4: Mild-moderate spinal canal stenosis and moderate bilateral neural foraminal narrowing resulting from symmetric disc bulging and facet joint hypertrophy. L4-L5: No significant spinal canal stenosis. Moderate bilateral neural foraminal narrowing from symmetric disc bulging and facet joint hypertrophy. L5-S1: Moderate facet joint hypertrophy. Symmetric disc bulge. No high-grade spinal canal or neural foraminal stenosis. Impression : 1. Prominent thoracolumbar kyphosis. 2. Multilevel chronic compression fracture deformities, with edema associated with the superior L1 endplate perhaps reflecting acute on chronic height loss. 3. At L3-L4, [id number] spinal canal stenosis and moderate bilateral neural foraminal narrowing. 4. At L4-L5, moderate bilateral neural foraminal narrowing. Dictated by Santiago Monson MD @ 10/05/2023 1:57:45 PM Signed by:?Santiago Monson MD @10/05/2023 1:57:45 PM (Electronic Signature)
== END 2023-10-05 09:58 | disposition home or self-care (01) ==
LOC: MRI 09:58
PROVIDERS: PCP Family Medicine; Visit Provider Family Medicine
DX: M48.56XA Collapsed vertebra, not elsewhere classified, lumbar region, initial encounter for fracture (principal); M48.061 Spinal stenosis, lumbar region without neurogenic claudication; M54.50 Low back pain, unspecified; G89.29 Other chronic pain
CPT/HCPCS: 72148

== ENCOUNTER 2023-10-25 08:29 | Outpatient (CLI) | payer MEDICARE, BC, SELFPAY ==
--- NOTE | 2023-10-25 09:00 | XR_ITS ---
Patient: LATHA CALABRESE Facility:?[facility] Patient ID:?[id number] Site Patient ID:?[id number] Site :?1950 Study:?DEXA-Bone Density DEXA - SPINE/HIP/FOREARM-10/25/2023 9:26:29 AM Ordering Physician:LEE ANN Final Report: DXA BONE MINERAL DENSITY STUDY Reason for exam: Wedge compression fracture. Current height (in): 59.0. Weight (lb): 103.0. Menopause age: 53. Ethnicity: White. 1. Have you had a previous hip or vertebral fracture? Yes. 2. Have you had any fractures during your adult life which did not result from significant trauma (e.g., auto accident)? Yes. 3. Did either of your parents have a hip fracture? No. 4. Do you smoke? Yes. 5. Have you ever taken Glucocorticoids? No. 6. Do you have rheumatoid arthritis? No. 7. Do you have secondary osteoporosis? No. 8. Do you drink 3 or more alcoholic drinks per day? No. 9. Are you being treated for osteoporosis? No. 10. Have you ever taken any of the following medications: Actonel, Evista, Fosamax, Miacalcin, Reclast, Boniva, Forteo, HRT (i.e. estrogen/hormone therapy), Protelos, Prolia, Vitamin D, Calcium, other ? please specify. ANSWER: Yes, vitamin D, calcium. 11. Do you have any of the following medical conditions: Anorexia or bulimia, asthma or emphysema, end stage renal disease, hyperparathyroidism, any seizure disorders, cancer, inflammatory bowel diseases, hysterectomy, other ? please specify. ANSWER: No. 12. What was your maximum height (inches)? 63. 13. Do you perform weight bearing exercise regularly? No. 14. Do you regularly consume dairy products? No. 15. Do you drink caffeinated beverages? No. 16. At what age did your period start? 14. 17. Are you premenopausal? No. 18. How many full term pregnancies have you had? Not provided. 19. Have you ever missed your period for more than 6 months in a row (not including or menopause)? No. TECHNIQUE: Bone mineral density study was performed using the [employer]. FINDINGS: The results of the study expressed as bone mineral density (BMD) are as follows: Lumbar spine L1 to L4: BMD: 0.784 g/cm2. T-score: -2.4. Z-score: 0.0. Neck Left: BMD: 0.316 g/cm2. T-score: -4.8. Z-score: -2.7. Total Left: BMD: 0.543 g/cm2. T-score: -3.3. Z-score: -1.5. Radius Left 33%: BMD: 0.518 g/cm2. T-score: -2.9. Z-score: -0.4. IMPRESSION: Osteoporosis. TL THOMAS M.D. SI:bhe D& [email or web address] be/Dictated by: Tl Thomas MD @ 10/26/2023 8:07:00 AM Signed by:?Tl Thomas MD @10/27/2023 10:11:01 AM (Electronic Signature)
== END 2023-10-25 08:30 | disposition home or self-care (01) ==
LOC: RAD 08:30
PROVIDERS: PCP Family Medicine; Visit Provider Family Medicine
DX: S32.000A Wedge compression fracture of unspecified lumbar vertebra, initial encounter for closed fracture (principal); M81.0 Age-related osteoporosis without current pathological fracture; G89.29 Other chronic pain; M54.50 Low back pain, unspecified
CPT/HCPCS: 77080

== ENCOUNTER 2023-11-09 12:55 | Outpatient (RCR) | payer MEDICARE, BC, SELFPAY ==
--- NOTE | 2023-11-03 14:48 | PC.NURSE ---
Diagnosis: Osteoporosis
--- NOTE | 2023-11-06 14:43 | URNOTE ---
Prior auth is not required for REclast ([id number]). Pt has medicare/ [place]. Services are based on medical necessity and follow medicare guidelines
[2023-11-09 13:40] LABS: Creatinine* 0.7 mg/dL (0.5-1.5); Est. Creatinine Clearance* 36.83; Estimated Glomerular Filt Rate 91 ml/min
[2023-11-09 13:41] LABS: Calcium* 9.7 mg/dL (8.4-10.6)
[2023-11-09 14:07] VITALS: BP 147/86; PULSE 75; RESP 16; TEMP 36.8; O2SAT 98
== END 2024-05-07 23:59 | disposition home or self-care (01) ==
LOC: CCIC 12:55
PROVIDERS: PCP Family Medicine; Visit Provider Family Medicine
DX: M81.0 Age-related osteoporosis without current pathological fracture (principal)
CPT/HCPCS: 36415; 82310; 82565; 96374; J3489

== ENCOUNTER 2024-09-24 13:20 | Outpatient (CLI) | payer MEDICARE, BC, SELFPAY | END 2024-09-24 13:21 | disposition home or self-care (01) | LOC: NFLDREF 09-26 03:54 | PROVIDERS: PCP Family Medicine; Referring Provider Family Medicine; Visit Provider Family Medicine | DX: I10 Essential (primary) hypertension (principal); Z13.220 Encounter for screening for lipoid disorders | CPT/HCPCS: 80048; 80061 ==

== ENCOUNTER 2024-10-30 12:35 | Outpatient (CLI) | payer MEDICARE, BC, SELFPAY ==
--- NOTE | 2024-10-30 13:00 | CRLHL7_ITS ---
For Patients: As a result of the Century Cures Act, medical imaging exams and procedure reports are released immediately into your electronic medical record. You may view this report before your referring provider. If you have questions, please contact your health care provider. XR DXA BONE MINERAL DENSITY (BMD) Current height (in): 59.0. Weight (lb): 103.0. Menopause age: 53. Ethnicity: White. Reason for exam: Osteoporosis. 1. Have you had a previous hip or vertebral fracture? Yes. 2. Have you had any fractures during your adult life which did not result from significant trauma (e.g., auto accident)? Yes. 3. Did either of your parents have a hip fracture? No. 4. Do you smoke? Yes. 5. Have you ever taken Glucocorticoids? No. 6. Do you have rheumatoid arthritis? No. 7. Do you have secondary osteoporosis? No. 8. Do you drink 3 or more alcoholic drinks per day? No. 9. Are you being treated for osteoporosis? No. 10. Have you ever taken any of the following medications: Actonel, Evista, Fosamax, Miacalcin, Reclast, Boniva, Forteo, HRT (i.e. estrogen/hormone therapy), Protelos, Prolia, Vitamin D, Calcium, other ??? please specify. ANSWER: Yes; Reclast, vitamin D, calcium. 11. Do you have any of the following medical conditions: Anorexia or bulimia, asthma or emphysema, end stage renal disease, hyperparathyroidism, any seizure disorders, cancer, inflammatory bowel diseases, hysterectomy, other ??? please specify. ANSWER: No. 12. What was your maximum height (inches)? 59. 13. Do you perform weight bearing exercise regularly? No. 14. Do you regularly consume dairy products? No. 15. Do you drink caffeinated beverages? No. 16. At what age did your period start? 14. 17. Are you premenopausal? No. 18. How many full-term pregnancies have you had? 4. 19. Have you ever missed your period for more than 6 months in a row (not including or menopause)? No. TECHNIQUE: Bone mineral density study was performed using the [employer]. FINDINGS: The results of the study expressed as bone mineral density (BMD) are as follows: Lumbar spine L1 to L4: BMD: 0.816 g/cm2. T-score: -2.1. Z-score: 0.3 Neck Left: BMD: 0.369 g/cm2. T-score: -4.3. Z-score: -2.2 Total Left: BMD: 0.526 g/cm2. T-score: -3.4. Z-score: -1.6 Left 33%: BMD: 0.510 g/cm2. T-score: -3.1. Z-score: -0.4 IMPRESSION: Osteoporosis. *Comparison exams done prior to 12/2019 were performed on different unit, [facility]. COMPARISON: Compared with scan of 10/25/2023, the bone mineral density has increased by 4.1 percent at the spine and decreased by 3.2 percent at the right hip. Henry Mejia M.D. Diagnostic Radiologist [email or web address] Transcribed: 3:01 pm DW/Dictated by: Henry Mejia MD @ 10/31/2024 9:08:00 AM (Electronically Signed)
== END 2024-10-30 12:36 | disposition home or self-care (01) ==
LOC: RAD 12:36
PROVIDERS: PCP Family Medicine; Visit Provider Family Medicine
DX: M81.0 Age-related osteoporosis without current pathological fracture (principal)
CPT/HCPCS: 77080

== ENCOUNTER 2025-02-04 13:00 | Outpatient (RCR) | payer MEDICARE, BC, SELFPAY ==
--- NOTE | 2024-12-31 14:05 | ONC.NURNOTE ---
Diagnosis: Osteoporosis
[2025-01-22 13:13] VITALS: BP 120/87; PULSE 82; RESP 17; TEMP 36.9; O2SAT 97
[2025-01-22 13:47] LABS: Calcium* 9.3 mg/dL (8.4-10.6); Creatinine* 0.9 mg/dL (0.5-1.5); Estimated Glomerular Filt Rate 66 ml/min
[2025-01-23 13:08] VITALS: BP 148/82; PULSE 74; RESP 16; TEMP 36.8; O2SAT 99
--- NOTE | 2025-01-28 10:44 | ONC.NURNOTE ---
Late Entry: 01/23/25- Patient in clinic today for yearly Reclast infusion. Patient reports she had a tooth pulled in early December. RN asked patient if MD gave ok for patient to have Bisphosphate infusion. Per patient she states her dentist knows she is on this medication. RN spoke with Chio Harp APRN who feels we should get a dental clearance form filled out by dentist prior to patient getting her infusion. RN spoke with patient who was agreeable to getting her dentist's ok. Per patient he does not work on '. RN will fax form to his office and call patient to reschedule once we receive dental clearance form back . Patient agreeable to the plan and will wait for our call.
[2025-02-04 12:57] VITALS: BP 148/80; PULSE 76; RESP 16; TEMP 36.9; O2SAT 98
== END 2025-07-21 23:59 | disposition home or self-care (01) ==
LOC: CCIC 13:00
PROVIDERS: PCP Family Medicine; Referring Provider Family Medicine; Visit Provider Clinical Nurse Specialist
DX: M81.0 Age-related osteoporosis without current pathological fracture (principal); Z79.83 Long term (current) use of bisphosphonates
CPT/HCPCS: 36415; 82310; 82565; 96365; 99211; J3489

== ENCOUNTER 2025-02-06 11:15 | Outpatient (RCR) | payer MEDICARE, BC, SELFPAY | END 2025-02-27 10:49 | disposition home or self-care (01) | PROVIDERS: PCP Family Medicine; Visit Provider Orthopaedic Surgery Sports Medicine | DX: M76.891 Other specified enthesopathies of right lower limb, excluding foot (principal); M76.31 Iliotibial band syndrome, right leg; M17.11 Unilateral primary osteoarthritis, right knee; Z72.3 Lack of physical exercise; Z51.89 Encounter for other specified aftercare | CPT/HCPCS: 97110; 97112; 97163 ==